=== PATIENT | male | born 1975 | race Caucasian/White ===

== ENCOUNTER 2016-08-16 21:15 | Inpatient (IN) | payer OTHER ==
[~2016-08-16] VITALS: Ht 170.2 cm; Wt 124.8 kg
[2016-08-16] MEDS ORDERED: hydrALAzine 20 MG INJ IV ONE (23:30)
[2016-08-16 23:58] LABS: ADD SCAN DIFF NO
[2016-08-17 00:01] LABS: BASOPHIL # 0.1 10^3/ul (0.0-0.1); BASOPHILS % 0.6 % (0.0-2.0); EOSINOPHILS # 0.2 10^3/ul (0.0-0.5); EOSINOPHILS % 1.5 % (0.0-7.0); HEMATOCRIT 40.8 % (42.0-52.0); HEMOGLOBIN 13.2 g/dl (14.0-18.0); LYMPHOCYTES # 2.4 10^3/ul (0.8-2.9); LYMPHOCYTES % 24.3 % (15.0-51.0); MEAN CORPUSCULAR HEMOGLOBIN 27.3 pg (29.0-33.0); MEAN CORPUSCULAR HGB CONC 32.4 g/dl (32.0-37.0); MEAN CORPUSCULAR VOLUME 84.5 fl (82.0-101.0); MEAN PLATELET VOLUME 10.6 fl (7.4-10.4); MONOCYTE # 0.8 10^3/ul (0.3-0.9); MONOCYTES % 8.2 % (0.0-11.0); NEUTROPHIL # 6.4 10^3/ul (1.6-7.5); NEUTROPHILS % 65.1 % (39.0-77.0); PLATELET COUNT 258 10^3/UL (140-415); RED BLOOD COUNT 4.83 10^6/ul (4.70-6.10); WHITE BLOOD COUNT 9.8 10^3/ul (4.8-10.8)
[2016-08-17 00:26] LABS: ALBUMIN 4.6 g/dl (3.3-4.9); ALBUMIN/GLOBULIN RATIO 1.43; BILIRUBIN,INDIRECT 0.2 mg/dl (0-1.1); BILIRUBIN,TOTAL 0.2 mg/dl (0.2-1.3); CALCIUM 9.1 mg/dl (8.4-10.2); CREATININE 1.18 mg/dl (0.61-1.24); POTASSIUM 3.5 mmol/L (3.5-5.1); TOTAL PROTEIN 7.8 g/dl (6.1-8.1)
[2016-08-17 00:36] LABS: TROPONIN-I 0.021 ng/ml (0.00-0.12)
[2016-08-17 00:44] LABS: INR 1.06; PROTIME 13.8 Sec (12.2-14.2); PT RATIO 1.1
[2016-08-17 00:45] LABS: PARTIAL THROMBOPLASTIN TIME 31.7 Sec (25.0-35.0)
--- NOTE | 2016-08-17 00:50 | RADRPT ---
PROCEDURE: XR Chest. CLINICAL INDICATION: Chest pain. TECHNIQUE: Portable AP upright view of the chest was obtained. COMPARISON: None. FINDINGS: The cardiomediastinal silhouette is enlarged. The lungs are clear. There is no evidence for pleura l effusion, pneumothorax or pulmonary vascular congestion. The osseous structures are intact with n o evidence for acute abnormality. RPTAT:HJJR IMPRESSION: Cardiac silhouette enlargement without evidence for acute intrathoracic pathology. Physician Dorota Date Time Electronically viewed and signed by Physician Dorota on 08/17/2016 00:50 JR/
[2016-08-17] MEDS ORDERED: MULTI PO (01:06)
[2016-08-17] MEDS ORDERED: IBUP200C11 PO (01:06)
[2016-08-17] MEDS ORDERED: hydrALAzine 20 MG INJ IV ONE (04:30)
--- NOTE | 2016-08-17 10:03 | QN ---
Documentation Comment Patient was signed out to me by Dr. Ashton and is awaiting a telemetry bed. Observation Note: Time: 4 hours Family Hx: Negative for diabetes Evaluation: Multiple exams showed improving symptoms and no evidence of clinical decompensation. PRETTY ROGERS MD Aug 17, 2016 10:03
[2016-08-17] MEDS ORDERED: ASPIRIN 81 MG TAB PO ONE (11:00)
[2016-08-17 14:39] VITALS: TEMP 99
[2016-08-17 19:20] VITALS: BP 181/101; PULSE 69; RESP 20; Ht 170.2 cm; Wt 124.8 kg
[2016-08-17 20:00] VITALS: BP 175/98; RESP 20
[2016-08-17 20:31] VITALS: PULSE 74
--- NOTE | 2016-08-17 23:40 | QN ---
Documentation Comment [id number] JENNIFER MACHADO MD Aug 17, 2016 23:40
[2016-08-18] VITALS (13 sets, daily range): BP systolic 153–184; BP diastolic 88–99; PULSE 63–90; RESP 17–19
--- NOTE | 2016-08-18 00:50 | HP ---
DATE OF ADMISSION: 08/17/2016 HISTORY OF PRESENT ILLNESS: Maynor is a 40-year-old male who has a history of hypertension. The fabian ent presented to this hospital with uncontrolled hypertension. The patient was seen by Dr. Ashton and the patient's blood pressure 155/77 in the ER earlier. The patient's chest x-ray done shows cardiac silhouette enlargement without evidence of acute intrat horacic pathology. The patient's laboratory data done shows hematocrit 40.8, sodium 140, potassium 3.5, BUN 33. Troponin initially 0.21 and repeat 1.[address] Yee was called to see this patien t in consultation. PAST MEDICAL HISTORY: Hypertension on no medication. ALLERGY HISTORY: NEGATIVE. FAMILY HISTORY: Hypertension. SOCIAL HISTORY: Denies. MEDICATIONS AT HOME: None except listed as ibuprofen. REVIEW OF SYSTEMS: HEENT: Unremarkable. RESPIRATORY: Unremarkable. CARDIOVASCULAR: No chest pain, palpitation. ABDOMEN: Unremarkable. EXTREMITIES: Unremarkable. PHYSICAL EXAMINATION: GENERAL: The patient is awake, alert, overweight male. VITAL SIGNS: As mentioned above, the patient at the time of admission, blood pressure 222/111, late st blood pressure is running 175/____. HEAD: Atraumatic, normocephalic. Pupils equal, reactive to light. NECK: Supple. No JVD. LUNGS: Clear. CARDIOVASCULAR: S1, S2 are normal. ABDOMEN: Soft, nontender. Bowel sounds positive. No palpable mass or hepatosplenomegaly. No guar ding, rebound tenderness. EXTREMITIES: There is no cyanosis, clubbing, or edema. CENTRAL NERVOUS SYSTEM: The patient is awake, alert, no focal deficit on the monitor shows normal s inus rhythm. IMPRESSION: 1. Uncontrolled malignant hypertension. 2. The patient has non-ST myocardial infarction. 3. The patient has mild anemia 4. Obesity. PLAN: To obtain cardiology consultation, oxygen, aspirin, 2D echo, nitro. Home medications will be reviewed and continued. Dictated By: JENNIFER MACHADO MD BS/NTS Conf#: [id number] DID#: [id number]
[2016-08-18] MEDS: NITROGLYCERIN 2% 1 GM OINT PKT TD SCH ×3 (03:55→20:18)
[2016-08-18] MEDS ORDERED: ENOXAPARIN 100 MG/ML SYG SC SCH (09:00)
[2016-08-18] MEDS: LOSARTAN 50 MG TAB PO SCH (10:22)
[2016-08-18] MEDS: METOPROLOL (XL) 50 MG TAB PO SCH (10:22)
[2016-08-18] MEDS: ASPIRIN (EC) 325 MG TAB PO SCH (10:23)
[2016-08-18] MEDS: ENOXAPARIN 60 MG/0.6 ML SYG SC SCH ×2 (10:28→20:20)
[2016-08-18] MEDS ORDERED: NITROGLYCERIN (SL) 0.4 MG TAB SL PRN (15:30)
[2016-08-18] MEDS: hydrALAzine 20 MG INJ IV PRN (15:58)
--- NOTE | 2016-08-18 16:00 | RADRPT ---
Echocardiogram Report Patient Name: STEFANY SIMMONS Gender: Male Date: 1975 Study Date: 17-Aug-2016 Day Worker: Julia [facility] Location: [facility] Ref. Physician: JENNIFER MACHADO Quality: Adequate Procedures: Transthoracic echocardiogram with complete 2D, M-Mode, and doppler examination. Indications: Hypertension. 2D/M Mode Doppler Measurement Value Normal Ranges Measurement Value Normal Ranges LVIDd 2D 4.9 3.5 - 5.6 cm AV Peak Jair 2.3 m/sec LVIDs 2D 3.2 2.1 - 4.1 cm AV Peak PG 21.1 mmHg LVPWd 2D 1.5 0.6 - 1.1 cm LVOT Peak Jair 1.6 m/sec IVSd 2D 1.5 0.6 - 1.1 cm LVOT Peak PG 10.4 mmHg AoR Diam 2D 2.2 2.0 - 3.7 cm MV E Peak Jair 0.8 m/sec EDV 2D 112.0 cm3 MV A Peak Jair 0.9 m/sec ESV 2D 31.6 cm3 MV E/A 0.8 LA Dimen 2D 4.0 2.3 - 4.0 cm MV Decel Time 273 msec MV Decel Ford 3 MV E/A 0.8 Findings Left Ventricle: Normal left ventricular systolic function. Normal left ventricular cavity size. Moderate concentric left ventricular hypertrophy. Ejection fraction is visually estimated at 55 %. Tissue Doppler/Mitral Doppler indices are consistent with impaired relaxation (Stage I diastolic dysfunction). Right Ventricle: Normal right ventricular size. Normal right ventricular systolic function. Left Atrium: The left atrium is normal in size. Right Atrium: The right atrium is normal in size. Mitral Valve: Mild mitral leaflet calcification. Trace mitral regurgitation. Aortic Valve: Normal appearance of the aortic valve. No significant aortic stenosis or insufficiency. Tricuspid Valve: Normal appearance and function of the tricuspid valve with trace physiologic regurgitation. Unable to obtain RVSP due to minimal presence of tricuspid regurgitation. Pericardium: Normal pericardium with no significant pericardial effusion. Aorta: Normal aortic root. IVC: Normal size and normal respiratory collapse consistent with normal right atrial pressure. Conclusions 1.Normal left ventricular systolic function. Normal left ventricular cavity size. Moderate concentric left ventricular hypertrophy. Ejection fraction is visually estimated at 55 %. Tissue Doppler/Mitral Doppler indices are consistent with impaired relaxation (Stage I diastolic dysfunction). 2.Trace mitral regurgitation. 3.Normal appearance and function of the tricuspid valve with trace physiologic regurgitation. Unable to obtain RVSP due to minimal presence of tricuspid regurgitation. Electronically Signed By: Dami Yee 18-Aug-2016 15:59:40 -0700 Patient Name: STEFANY SIMMONS Study Date: 17-Aug-2016 [id number]
--- NOTE | 2016-08-18 16:22 | CONS ---
DATE OF ADMISSION: 08/17/2016 DATE OF CONSULTATION: 08/18/2016 REASON FOR CONSULTATION: Hypertensive urgency/emergency, positive troponin. REQUESTING PHYSICIAN: Dr. Machado HISTORY OF PRESENT ILLNESS: Mr. Veras is a 40-year-old male with a recent diagnosis of hypertensi on who presented with uncontrolled systolic blood pressures as high as 240 per patient at home. The patient, upon arrival, described some intermittent vague chest pain which he thought were due to wo rking out. Upon arrival in the emergency department, temperature 97.2, blood pressure markedly elev ated at 222/111, pulse 60, respiration 18, saturating 97%. The patient's labs revealed sodium 140, potassium 3.5, creatinine 1.1, BUN 33. Troponin initially negative. BNP of 1340. INR 1.0. White blood count 9.8, hemoglobin 13.2, platelet count 258. The patient underwent a chest x-ray revealing cardiac silhouette enlarged without evidence for acute intrathoracic pathology. The patient's elec trocardiogram revealed normal sinus rhythm, rate of 60, normal axis, normal intervals with lateral T -wave inversion. The patient subsequently was admitted to the floor, and since admit to floor has h ad troponins trending going from negative to positive at a peak of 0.361. The patient denies curren t chest pain. PAST MEDICAL HISTORY: As above in HPI. MEDICATIONS CURRENTLY IN HOSPITAL: 1. Lipitor 80 mg at bedtime. 2. Aspirin 325 mg daily. 3. Toprol 50 mg daily. 4. Cozaar 100 mg daily. 5. Hydralazine p.r.n. 6. Nitro paste 1 inch q. 12. 7. Clonidine p.r.n. ALLERGIES: NO KNOWN DRUG ALLERGIES. SOCIAL HISTORY: No tobacco, social ETOH, no illicit drug use. FAMILY HISTORY: Negative for sudden cardiac or early CAD. REVIEW OF SYSTEMS: As above in HPI. CONSTITUTIONAL: No fevers, chills. PULMONARY: No current shortness of breath. CARDIOVASCULAR: No current chest pain. GASTROINTESTINAL: No vomiting. GENITOURINARY: No hematuria. MUSCULOSKELETAL: Degenerative joint disease. PSYCHIATRIC: The patient denies depression. NEUROLOGIC: No documented history of CVA. PHYSICAL EXAMINATION VITAL SIGNS: Temperature 98.8, blood pressure 160/90, pulse 61, respiratory rate 19, saturating 96% . GENERAL: The patient is alert, awake, in no acute distress. NECK: JVP approximately 8 to 9 cm of water. CHEST: Fair air movement throughout. HEART: Regular rate and rhythm. S1, S2, I/ systolic murmur, nondisplaced PMI. ABDOMEN: Positive bowel sounds, soft, obese. EXTREMITIES: No pitting edema, 1+ pulses bilaterally, posterior tibial. LABORATORY DATA: As above in HPI. No further labs for my review at this time. IMAGING STUDIES: As above in HPI. No further imaging studies for my review at this time. ECG: As above in HPI. No further electrocardiograms for my review at this time. IMPRESSION: 1. Positive troponin concerning for non-ST elevation myocardial infarction. 2. Chest pain on admission; none currently. 3. Hypertensive emergency, slowly improving on oral antihypertensives. 4. Anemia. 5. Dyslipidemia. RECOMMENDATIONS: 1. At this time, would maintain the patient on telemetry monitoring to follow rhythm and rate contr ol closely. 2. We will continue to trend the patient's cardiac enzymes, assess for any significant ongoing card iac damage. 3. Continue the patient's current beta alphonse, Cozaar, and we will additionally initiate the patie nt on calcium channel alphonse to improve overall systolic blood pressure control. 4. Continue the patient's current statin and adjust it according to fasting lipid panel which is to be checked. 5. Continue the patient's Lovenox at this time while you continue to trend the patient's cardiac en zymes and the patient's nitro paste in the setting of hypertensive urgency/emergency. 6. Depending on ongoing evaluation of patient's troponins, 2D echo analysis which will be interpret ed today and serial EKGs, the patient will likely benefit from either cardiac stress test to further assess significance troponins versus direct left heart catheterization with possible PTCA and stent placement. Thank you for allowing me to take part in the care of this patient. I will continue to follow along very closely with you with further recommendations to be made as the patient progresses through his inpatient hospital clinical course. Dictated By: TAYLOR MCMULLEN/KEMI Conf#: [id number] DID#: [id number] CC: JENNIFER MACHADO MD;*EndCC*
--- NOTE | 2016-08-18 18:30 | PN ---
Date/Time of Note Date/Time of Note DATE: 08/18/16 TIME: 18:29 Assessment/Plan VTE Prophylaxis VTE Prophylaxis Intervention: other Lines/Catheters IV [facility]from [facility] [place] [facility] Urinary Cath still in place: No Assessment/Plan Chief Complaint/Hosp Course IMPRESSION: 1. Uncontrolled malignant hypertension. 2. The patient has non-ST myocardial infarction. 3. The patient has mild anemia 4. Obesity. plan per dr cedillo Problems: Subjective 24 Hr Interval Summary Respiratory: no complaints Cardiovascular: no complaints Exam/Review of Systems Vital Signs Vitals Vital Signs Date Time Temp Pulse Resp B/P Pulse Ox O2 Delivery O2 Flow Rate FiO2 08/18/16 16:25 72 08/18/16 15:54 98.6 17 184/97 97 08/17/16 19:20 Room Air Intake and Output 08/17/16 08/17/16 08/18/16 15:00 23:00 07:00 Intake Total 400 ml Balance 400 ml Exam Neck: supple Respiratory: clear to auscultation Cardiovascular: regular rate and rhythm Gastrointestinal: bowel sounds, soft Extremities: normal pulses Results Result Diagram: 08/16/16 2350 08/16/16 2350 Results 24 hrs Laboratory Tests Test 08/17/16 21:40 08/18/16 00:30 Troponin I 0.349 *H 0.361 *H Medications Medications Current Medications Clonidine (Catapres) 0.1 mg Q6H PRN PO prn sbp > 160 or dbp >100 Last administered on 08/18/16 03:56; Admin Dose 0.1 MG; Start 08/17/16 at 11:00 Atorvastatin Calcium (Lipitor) 80 mg HS PO ; Start 08/18/16 at 21:00 Enoxaparin Sodium (Lovenox) 120 mg Q12 SC Last administered on 08/18/16 10:28; Admin Dose 120 MG; Start 08/18/16 at 09:00; Stop 08/18/16 at 23:00 Aspirin (Ecotrin) 325 mg DAILY PO Last administered on 08/18/16 10:23; Admin Dose 325 MG; Start 08/18/16 at 09:00 Metoprolol Succinate (Toprol Xl) 50 mg DAILY PO Last administered on 08/18/16 10:22; Admin Dose 50 MG; Start 08/18/16 at 09:00 Losartan Potassium (Cozaar) 100 mg DAILY PO Last administered on 08/18/16 10:22 ; Admin Dose 100 MG; Start 08/18/16 at 09:00 Hydralazine HCl (Apresoline) 10 mg Q6H PRN IV SBP>170 Last administered on 15:58; Admin Dose 10 MG; Start 08/18/16 at 00:30 Nitroglycerin (Nitroglycerin 2% Oint) 1 inch Q12 TD Last administered on 10:24; Admin Dose 1 INCH; Start 08/18/16 at 04:00 Nifedipine (Procardia Xl) 30 mg DAILY PO ; Start 08/19/16 at 21:00 Nitroglycerin (Nitroglycerin (Sl Tab) 0.4 Mg) 1 tab Q5M PRN SL ANGINA; Start at 15:30 JENNIFER MACHADO MD Aug 18, 2016 18:30
[2016-08-18] MEDS: ATORVASTATIN 80 MG TAB PO SCH (20:16)
[2016-08-19] VITALS (18 sets, daily range): BP systolic 150–187; BP diastolic 77–103; PULSE 64–97; RESP 18–20
[2016-08-19] MEDS: hydrALAzine 20 MG INJ IV PRN ×3 (04:33→21:38)
[2016-08-19 07:40] LABS: ADD SCAN DIFF NO
[2016-08-19 07:43] LABS: BASOPHIL # 0.1 10^3/ul (0.0-0.1); BASOPHILS % 0.7 % (0.0-2.0); EOSINOPHILS # 0.1 10^3/ul (0.0-0.5); EOSINOPHILS % 1.2 % (0.0-7.0); HEMOGLOBIN 12.8 g/dl (14.0-18.0); LYMPHOCYTES # 1.6 10^3/ul (0.8-2.9); LYMPHOCYTES % 17.5 % (15.0-51.0); MEAN CORPUSCULAR HEMOGLOBIN 27.8 pg (29.0-33.0); MEAN CORPUSCULAR HGB CONC 32.8 g/dl (32.0-37.0); MEAN CORPUSCULAR VOLUME 84.8 fl (82.0-101.0); MEAN PLATELET VOLUME 10.6 fl (7.4-10.4); MONOCYTE # 0.8 10^3/ul (0.3-0.9); MONOCYTES % 8.6 % (0.0-11.0); NEUTROPHIL # 6.5 10^3/ul (1.6-7.5); NEUTROPHILS % 71.7 % (39.0-77.0); PLATELET COUNT 217 10^3/UL (140-415); RED CELL DISTRIBUTION WIDTH 14.4 % (11.5-14.5); WHITE BLOOD COUNT 9.1 10^3/ul (4.8-10.8)
[2016-08-19 08:07] LABS: ALBUMIN 4.3 g/dl (3.3-4.9); ALBUMIN/GLOBULIN RATIO 1.53; BILIRUBIN,INDIRECT 0.5 mg/dl (0-1.1); BILIRUBIN,TOTAL 0.5 mg/dl (0.2-1.3); CALCIUM 8.6 mg/dl (8.4-10.2); CHOL/HDL RATIO 4.4 RATIO; CREATININE 1.06 mg/dl (0.61-1.24); POTASSIUM 3.8 mmol/L (3.5-5.1); TOTAL PROTEIN 7.1 g/dl (6.1-8.1)
[2016-08-19] MEDS: ASPIRIN (EC) 325 MG TAB PO SCH (09:48)
[2016-08-19] MEDS: METOPROLOL (XL) 50 MG TAB PO SCH (09:49)
[2016-08-19] MEDS: LOSARTAN 50 MG TAB PO SCH (09:49)
[2016-08-19] MEDS: NITROGLYCERIN 2% 1 GM OINT PKT TD SCH ×2 (09:49→21:37)
--- NOTE | 2016-08-19 09:52 | RADRPT ---
Vent Rate: 71 bpm RR Interval: 0 msec VT Interval: 180 msec QRS Duration: 116 msec QT Interval: 440 msec QTC Interval: 478 msec P-R-T [place]: 50 - -12 - 148 degrees Normal sinus rhythm ST amp; T wave abnormality, consider lateral ischemia Prolonged QT Abnormal ECG No previous tracing available for comparison Electronically Signed By: Demetrio Whittaker [id number]
--- NOTE | 2016-08-19 17:57 | CONS ---
Date/Time of Note Date/Time of Note DATE: 08/19/16 TIME: 17:53 Assessment/Plan Assessment/Plan Chief Complaint/Hosp Course IMPRESSION: 1. Positive troponin concerning for non-ST elevation myocardial infarction. 2. Chest pain on admission; none currently. 3. Hypertensive emergency-still uncontrolled 4. Anemia. 5. Dyslipidemia. Recc: -Tele -serial ecg's -trend cardiac enzymes -Increase procardia and continue toprol/losartan -Continue statin -[facility] with possible PTCA/stent Problems: Consultation Date/Type/Reason Admit Date/Time Aug 17, 2016 at 01:56 Initial Consult Date 08/18/2016 Type of Consultation: cardiology Reason for Consultation positive troponin Referring Provider: JENNIFER MACHADO Exam/Review of Systems Vital Signs Vitals Vital Signs Date Time Temp Pulse Resp B/P Pulse Ox O2 Delivery O2 Flow Rate FiO2 08/19/16 16:24 86 08/19/16 16:09 97.6 18 187/95 98 08/17/16 19:20 Room Air Intake and Output 08/18/16 08/18/16 08/19/16 15:00 23:00 07:00 Intake Total 800 ml 500 ml Balance 800 ml 500 ml Exam Review of Systems: CONSTITUTIONAL: No fevers, chills. PULMONARY: No sob CARDIOVASCULAR: No chest pain/palpitations GASTROINTESTINAL: No nausea/vomiting. GENITOURINARY: No hematuria/dysuria. MUSCULOSKELETAL: No myagias/arthalgias. PSYCHIATRIC: The patient denies depression. NEUROLOGIC: No weakness Constitutional: alert Psych: no complaints Head: normocephalic ENMT: mucosa pink and moist Neck: jvd (9 cm water), supple Respiratory: diminished breath sounds (at bases/B) Cardiovascular: regular rate and rhythm Gastrointestinal: non-tender, soft Musculoskeletal: muscle tone (normal) Extremities: edema (none) Neurological: numbness (of LE) Results Result Diagram: 08/19/16 0714 08/19/16 0715 Results 24 hrs Laboratory Tests Test 08/19/16 00:52 08/19/16 07:14 08/19/16 07:15 08/19/16 11:47 Troponin I 0.222 *H White Blood Count 9.1 Red Blood Count 4.60 L Hemoglobin 12.8 L Hematocrit 39.0 L Mean Corpuscular Volume 84.8 Mean Corpuscular Hemoglobin 27.8 L Mean Corpuscular Hemoglobin Concent 32.8 Red Cell Distribution Width 14.4 Platelet Count 217 Mean Platelet Volume 10.6 H Neutrophils % 71.7 Lymphocytes % 17.5 Monocytes % 8.6 Eosinophils % 1.2 Basophils % 0.7 Nucleated Red Blood Cells % 0.0 Neutrophils # 6.5 Lymphocytes # 1.6 Monocytes # 0.8 Eosinophils # 0.1 Basophils # 0.1 Nucleated Red Blood Cells # 0.0 Sodium Level 140 Potassium Level 3.8 Chloride Level 105 Carbon Dioxide Level 29 Anion Gap 10 Blood Urea Nitrogen 26 H Creatinine 1.06 Glucose Level 89 Calcium Level 8.6 Total Bilirubin 0.5 Direct Bilirubin 0.00 Indirect Bilirubin 0.5 Aspartate Amino Transf (AST/SGOT) 22 Alanine Aminotransferase (ALT/SGPT) 39 Alkaline Phosphatase 95 Total Protein 7.1 Albumin 4.3 Globulin 2.80 Albumin/Globulin Ratio 1.53 Triglycerides Level 94 Cholesterol Level 128 LDL Cholesterol, Calculated 80 HDL Cholesterol 29 Cholesterol/HDL Ratio 4.4 Bedside Glucose 161 Test 08/19/16 17:13 Bedside Glucose 87 Medications Medications Current Medications Clonidine (Catapres) 0.1 mg Q6H PRN PO prn sbp > 160 or dbp >100 Last administered on 08/18/16 20:26; Admin Dose 0.1 MG; Start 08/17/16 at 11:00 Atorvastatin Calcium (Lipitor) 80 mg HS PO Last administered on 08/18/16 20:16 ; Admin Dose 80 MG; Start 08/18/16 at 21:00 Aspirin (Ecotrin) 325 mg DAILY PO Last administered on 08/19/16 09:48; Admin Dose 325 MG; Start 08/18/16 at 09:00 Metoprolol Succinate (Toprol Xl) 50 mg DAILY PO Last administered on 08/19/16 09:49; Admin Dose 50 MG; Start 08/18/16 at 09:00 Losartan Potassium (Cozaar) 100 mg DAILY PO Last administered on 08/19/16 09:49 ; Admin Dose 100 MG; Start 08/18/16 at 09:00 Hydralazine HCl (Apresoline) 10 mg Q6H PRN IV SBP>170 Last administered on 15:27; Admin Dose 10 MG; Start 08/18/16 at 00:30 Nitroglycerin (Nitroglycerin 2% Oint) 1 inch Q12 TD Last administered on t 09:49; Admin Dose 1 INCH; Start 08/18/16 at 04:00 Nifedipine (Procardia Xl) 30 mg DAILY PO ; Start 08/19/16 at 21:00 Nitroglycerin (Nitroglycerin (Sl Tab) 0.4 Mg) 1 tab Q5M PRN SL ANGINA; Start at 15:30 TAYLOR MICHAELS Aug 19, 2016 17:57
[2016-08-19] MEDS ORDERED: NIFEdipine (XL) 30 MG TAB PO ONE (18:00)
--- NOTE | 2016-08-19 18:05 | PN ---
Date/Time of Note Date/Time of Note DATE: 08/19/16 TIME: 18:04 Assessment/Plan VTE Prophylaxis VTE Prophylaxis Intervention: other Lines/Catheters IV Catheter Type (from Nrs): Peripheral IV Urinary Cath still in place: No Assessment/Plan Chief Complaint/Hosp Course IMPRESSION: 1. Uncontrolled malignant hypertension.better 2. The patient has non-ST myocardial infarction. 3. The patient has mild anemia 4. Obesity. plan per dr cedillo bp meds Problems: Subjective 24 Hr Interval Summary Respiratory: no complaints Cardiovascular: No chest pain Exam/Review of Systems Vital Signs Vitals Vital Signs Date Time Temp Pulse Resp B/P Pulse Ox O2 Delivery O2 Flow Rate FiO2 08/19/16 16:24 86 08/19/16 16:09 97.6 18 187/95 98 08/17/16 19:20 Room Air Intake and Output 08/18/16 08/18/16 08/19/16 15:00 23:00 07:00 Intake Total 800 ml 500 ml Balance 800 ml 500 ml Exam Neck: supple Respiratory: clear to auscultation Cardiovascular: regular rate and rhythm Gastrointestinal: soft Musculoskeletal: nl extremities to inspection Extremities: normal pulses Results Result Diagram: 08/19/16 0714 08/19/16 0715 Results 24 hrs Laboratory Tests Test 08/19/16 00:52 08/19/16 07:14 08/19/16 07:15 08/19/16 11:47 Troponin I 0.222 *H White Blood Count 9.1 Red Blood Count 4.60 L Hemoglobin 12.8 L Hematocrit 39.0 L Mean Corpuscular Volume 84.8 Mean Corpuscular Hemoglobin 27.8 L Mean Corpuscular Hemoglobin Concent 32.8 Red Cell Distribution Width 14.4 Platelet Count 217 Mean Platelet Volume 10.6 H Neutrophils % 71.7 Lymphocytes % 17.5 Monocytes % 8.6 Eosinophils % 1.2 Basophils % 0.7 Nucleated Red Blood Cells % 0.0 Neutrophils # 6.5 Lymphocytes # 1.6 Monocytes # 0.8 Eosinophils # 0.1 Basophils # 0.1 Nucleated Red Blood Cells # 0.0 Sodium Level 140 Potassium Level 3.8 Chloride Level 105 Carbon Dioxide Level 29 Anion Gap 10 Blood Urea Nitrogen 26 H Creatinine 1.06 Glucose Level 89 Calcium Level 8.6 Total Bilirubin 0.5 Direct Bilirubin 0.00 Indirect Bilirubin 0.5 Aspartate Amino Transf (AST/SGOT) 22 Alanine Aminotransferase (ALT/SGPT) 39 Alkaline Phosphatase 95 Total Protein 7.1 Albumin 4.3 Globulin 2.80 Albumin/Globulin Ratio 1.53 Triglycerides Level 94 Cholesterol Level 128 LDL Cholesterol, Calculated 80 HDL Cholesterol 29 Cholesterol/HDL Ratio 4.4 Bedside Glucose 161 Test 08/19/16 17:13 Bedside Glucose 87 Medications Medications Current Medications Clonidine (Catapres) 0.1 mg Q6H PRN PO prn sbp > 160 or dbp >100 Last administered on 08/18/16 20:26; Admin Dose 0.1 MG; Start 08/17/16 at 11:00 Atorvastatin Calcium (Lipitor) 80 mg HS PO Last administered on 08/18/16 20:16 ; Admin Dose 80 MG; Start 08/18/16 at 21:00 Aspirin (Ecotrin) 325 mg DAILY PO Last administered on 08/19/16 09:48; Admin Dose 325 MG; Start 08/18/16 at 09:00 Metoprolol Succinate (Toprol Xl) 50 mg DAILY PO Last administered on 08/19/16 09:49; Admin Dose 50 MG; Start 08/18/16 at 09:00 Losartan Potassium (Cozaar) 100 mg DAILY PO Last administered on 08/19/16 09:49 ; Admin Dose 100 MG; Start 08/18/16 at 09:00 Hydralazine HCl (Apresoline) 10 mg Q6H PRN IV SBP>170 Last administered on 15:27; Admin Dose 10 MG; Start 08/18/16 at 00:30 Nitroglycerin (Nitroglycerin 2% Oint) 1 inch Q12 TD Last administered on 09:49; Admin Dose 1 INCH; Start 08/18/16 at 04:00 Nifedipine (Procardia Xl) 30 mg DAILY PO ; Start 08/19/16 at 21:00 Nitroglycerin (Nitroglycerin (Sl Tab) 0.4 Mg) 1 tab Q5M PRN SL ANGINA; Start at 15:30 JENNIFER MACHADO MD Aug 19, 2016 18:05
[2016-08-19] MEDS ORDERED: NIFEdipine (XL) 30 MG TAB PO SCH (21:00)
[2016-08-19] MEDS: ATORVASTATIN 80 MG TAB PO SCH (21:37)
[2016-08-19] MEDS: NIFEdipine (XL) 30 MG TAB PO SCH (21:38)
[2016-08-20] VITALS (21 sets, daily range): BP systolic 138–182; BP diastolic 74–95; PULSE 68–96; RESP 10–27
[2016-08-20] MEDS ORDERED: DIPHENHYDRAMINE 50 MG CAP PO ONE (07:00)
[2016-08-20] MEDS ORDERED: DIAZEPAM 5 MG TAB PO ONE (07:00)
[2016-08-20 08:08] LABS: ADD SCAN DIFF NO
[2016-08-20 08:14] LABS: BASOPHIL # 0.1 10^3/ul (0.0-0.1); BASOPHILS % 0.8 % (0.0-2.0); EOSINOPHILS # 0.3 10^3/ul (0.0-0.5); EOSINOPHILS % 2.4 % (0.0-7.0); HEMATOCRIT 40.3 % (42.0-52.0); HEMOGLOBIN 12.9 g/dl (14.0-18.0); LYMPHOCYTES # 1.8 10^3/ul (0.8-2.9); MEAN CORPUSCULAR HEMOGLOBIN 27.1 pg (29.0-33.0); MEAN CORPUSCULAR VOLUME 84.7 fl (82.0-101.0); MONOCYTE # 0.9 10^3/ul (0.3-0.9); MONOCYTES % 8.7 % (0.0-11.0); NEUTROPHIL # 7.5 10^3/ul (1.6-7.5); NEUTROPHILS % 70.8 % (39.0-77.0); PLATELET COUNT 252 10^3/UL (140-415); RED BLOOD COUNT 4.76 10^6/ul (4.70-6.10); RED CELL DISTRIBUTION WIDTH 14.5 % (11.5-14.5); WHITE BLOOD COUNT 10.6 10^3/ul (4.8-10.8)
[2016-08-20] MEDS: LOSARTAN 50 MG TAB PO SCH (08:20)
[2016-08-20] MEDS: METOPROLOL (XL) 50 MG TAB PO SCH (08:21)
[2016-08-20] MEDS: ASPIRIN (EC) 325 MG TAB PO SCH (08:21)
[2016-08-20] MEDS: NIFEdipine (XL) 30 MG TAB PO SCH ×2 (08:21→21:10)
[2016-08-20] MEDS: NITROGLYCERIN 2% 1 GM OINT PKT TD SCH ×2 (08:22→21:10)
[2016-08-20 08:35] LABS: INR 1.08; PT RATIO 1.1
[2016-08-20] MEDS ORDERED: VERAPAMIL 5 MG INJ ONE (08:38)
[2016-08-20] MEDS ORDERED: HEPARIN 1000 UNITS/ML 10 ML INJ ONE (08:38)
[2016-08-20] MEDS ORDERED: NITROGLYCERIN (IC) 100 MCG/ML INJ ONE (08:38)
[2016-08-20] MEDS ORDERED: MIDAZOLAM 1 MG/ML 2 ML INJ ONE (08:38)
[2016-08-20] MEDS ORDERED: FENTAnyl 50 MCG/ML VIAL ONE (08:38)
[2016-08-20] MEDS ORDERED: LIDOCAINE 1% (MDV) 20 ML INJ ONE (08:38)
[2016-08-20] MEDS ORDERED: IODIXANOL LOCM 100 ML BTL ONE ×2 (08:38→09:47)
[2016-08-20 08:42] LABS: CALCIUM 8.8 mg/dl (8.4-10.2); CREATININE 0.96 mg/dl (0.61-1.24)
--- NOTE | 2016-08-20 08:57 | RADRPT ---
Vent Rate: 83 bpm RR Interval: 0 msec VT Interval: 174 msec QRS Duration: 112 msec QT Interval: 404 msec QTC Interval: 474 msec P-R-T [place]: 47 - -32 - 111 degrees Normal sinus rhythm Left axis deviation left anterior hemiblock Poor R-Wave progression Cannot rule out Inferior infarct , age undetermined ST amp; T wave abnormality, consider lateral ischemia Abnormal ECG No previous tracing available for comparison Electronically Signed By: Demetrio Whittaker [id number]
[2016-08-20] MEDS ORDERED: hydrALAzine 20 MG INJ ONE (09:55)
--- NOTE | 2016-08-20 10:29 | CONS ---
Date/Time of Note Date/Time of Note DATE: 08/20/16 TIME: 10:26 Assessment/Plan Assessment/Plan Chief Complaint/Hosp Course IMPRESSION: 1. Positive troponin concerning for non-ST elevation myocardial infarction.- Now s/p C 08/20 with mild to moderate non-obstructive cad 2. Chest pain on admission none currently. 3. Hypertensive emergency-improving 4. Anemia. 5. Dyslipidemia. Recc: -Tele -serial ecg's -trend cardiac enzymes -Continue toprol/losartan/procardia XL BID -Continue statin Problems: Consultation Date/Type/Reason Admit Date/Time Aug 17, 2016 at 01:56 Initial Consult Date 08/18/2016 Type of Consultation: cardiology Reason for Consultation Positive troponin Referring Provider: JENNIFER MACHADO MD Exam/Review of Systems Vital Signs Vitals Vital Signs Date Time Temp Pulse Resp B/P Pulse Ox O2 Delivery O2 Flow Rate FiO2 08/20/16 08:29 80 08/20/16 07:41 98.1 20 141/80 94 08/17/16 19:20 Room Air Intake and Output 08/19/16 08/19/16 08/20/16 15:00 23:00 07:00 Intake Total 920 ml 900 ml Balance 920 ml 900 ml Exam Review of Systems: CONSTITUTIONAL: No fevers, chills. PULMONARY: No sob CARDIOVASCULAR: No chest pain/palpitations GASTROINTESTINAL: No nausea/vomiting. GENITOURINARY: No hematuria/dysuria. MUSCULOSKELETAL: No myagias/arthalgias. PSYCHIATRIC: The patient denies depression. NEUROLOGIC: No weakness Constitutional: alert Psych: no complaints Head: normocephalic ENMT: mucosa pink and moist Neck: jvd (9 cm water), supple Respiratory: clear to auscultation Cardiovascular: regular rate and rhythm Gastrointestinal: non-tender, soft Musculoskeletal: muscle tone (normal) Extremities: edema (None) Neurological: other Results Result Diagram: 08/20/16 0621 08/20/16 0612 Results 24 hrs Laboratory Tests Test 08/19/16 11:47 08/19/16 17:13 08/20/16 06:12 08/20/16 06:21 Bedside Glucose 161 87 Prothrombin Time 14.0 Prothrombin Time Ratio 1.1 INR International Normalized Ratio 1.08 Sodium Level 141 Potassium Level 4.0 Chloride Level 107 Carbon Dioxide Level 24 Anion Gap 14 Blood Urea Nitrogen 22 H Creatinine 0.96 Glucose Level 93 Calcium Level 8.8 White Blood Count 10.6 Red Blood Count 4.76 Hemoglobin 12.9 L Hematocrit 40.3 L Mean Corpuscular Volume 84.7 Mean Corpuscular Hemoglobin 27.1 L Mean Corpuscular Hemoglobin Concent 32.0 Red Cell Distribution Width 14.5 Platelet Count 252 Mean Platelet Volume 11.0 H Neutrophils % 70.8 Lymphocytes % 17.0 Monocytes % 8.7 Eosinophils % 2.4 Basophils % 0.8 Nucleated Red Blood Cells % 0.0 Neutrophils # 7.5 Lymphocytes # 1.8 Monocytes # 0.9 Eosinophils # 0.3 Basophils # 0.1 Nucleated Red Blood Cells # 0.0 Test 08/20/16 07:44 Bedside Glucose 99 Medications Medications Current Medications Clonidine (Catapres) 0.1 mg Q6H PRN PO prn sbp > 160 or dbp >100 Last administered on 08/18/16 20:26; Admin Dose 0.1 MG; Start 08/17/16 at 11:00 Atorvastatin Calcium (Lipitor) 80 mg HS PO Last administered on 08/19/16 21:37 ; Admin Dose 80 MG; Start 08/18/16 at 21:00 Aspirin (Ecotrin) 325 mg DAILY PO Last administered on 08/20/16 08:21; Admin Dose 325 MG; Start 08/18/16 at 09:00 Metoprolol Succinate (Toprol Xl) 50 mg DAILY PO Last administered on 08/20/16 08:21; Admin Dose 50 MG; Start 08/18/16 at 09:00 Losartan Potassium (Cozaar) 100 mg DAILY PO Last administered on 08/20/16 08:20 ; Admin Dose 100 MG; Start 08/18/16 at 09:00 Nitroglycerin (Nitroglycerin 2% Oint) 1 inch Q12 TD Last administered on 21:37; Admin Dose 1 INCH; Start 08/18/16 at 04:00 Nitroglycerin (Nitroglycerin (Sl Tab) 0.4 Mg) 1 tab Q5M PRN SL ANGINA; Start at 15:30 Hydralazine HCl (Apresoline) 10 mg Q4 PRN IV SBP>170 Last administered on 21:38; Admin Dose 10 MG; Start 08/19/16 at 21:00 Nifedipine (Procardia Xl) 30 mg BID PO Last administered on 08/20/16t 08:21; Admin Dose 30 MG; Start 08/19/16 at 21:00 TAYLOR MICHAELS Aug 20, 2016 10:29
[2016-08-20] MEDS ORDERED: SOD CHLORIDE 0.9% 1,000 ML IV SCH (10:30)
[2016-08-20] MEDS ORDERED: ACETAMINOPHEN 325 MG TAB PO PRN (10:30)
[2016-08-20] MEDS ORDERED: ONDANSETRON 4 MG INJ IV PRN (10:30)
[2016-08-20] MEDS ORDERED: AL HYDROX/MG HYDROX/SIMETH 30 ML CUP PO PRN (10:30)
[2016-08-20] MEDS ORDERED: morphine 2 MG INJ IV PRN (10:30)
--- NOTE | 2016-08-20 11:04 | CARRPT ---
DATE OF PROCEDURE: 08/20/2016 TYPE OF PROCEDURE: 1. Left heart catheterization. 2. Coronary angiography. 3. Measurement of left ventricular end-diastolic pressure. 4. 30 minutes moderate concious sedation ATTENDING PHYSICIAN: Taylor Yee MD REFERRING PHYSICIAN: Marin Machado MD. INDICATION: Positive troponin concerning for non-ST elevation myocardial infarction. TYPE OF ANESTHESIA: Conscious and local. BRIEF HISTORY AND HOSPITAL COURSE: Mr. Veras is a 40-year-old male with history of hypertension, who presented with uncontrolled systolic blood pressure greater than 200, in this setting ruled in for a non-ST elevation myocardial infarction. Given these findings, the patient was referred for and presents today in order to undergo left heart catheterization to assess for the possibility of significant obstructive coronary artery disease lending to positive troponin. DESCRIPTION OF PROCEDURE: After informed consent was obtained, the patient was brought the [facility] cardiac catheterization lab where his right radial area was prepped and draped in the usual sterile fashion. Lidocaine 2% was infiltrated in the right radial area in order to achieve adequate local anesthesia. With modified Seldinger technique, the radial artery was cannulated and a 6-Guamanian arterial sheath was placed. A 6-Guamanian JL3.5 catheter was used to cannulate the left main coronary ostium. With contrast injection, multiple views of the left coronary arterial system were obtained. JL3.5 was removed over a guidewire and a JR4 was used to cannulate the right coronary arterial ostium. With contrast injection, multiple views of the right coronary arterial system obtained. JR4 was removed over a guidewire and a 6-Gu[place]ian pigtail was passed down the ascending aorta into the left ventricle where left ventricular end-diastolic pressure was measured. Pulled back across the aortic valve to assess for significant gradient, which there was not and removed. Subsequently, at this time this completed the procedure. There were no noted complications. The patient's sheath was removed. TR band was applied. FINDINGS: Coronary angiography: Left main 6 mm, no significant stenoses. LAD 4 mm, no proximal stenoses. In the mid portion, there is a stenosis up to approximately 20% to 30%. The remainder of the LAD is free of significant focal stenoses, goes around the apex. Proximal branching diagonal is 3.5 mm vessel with a proximal 30% to 40% stenosis. The circumflex proximally is a 4.5 mm vessel and is free of any significant focal stenoses in its proximal portion. Circumflex continuation AV groove at the bifurcation has a 20% stenosis. There is a very sizable mid branching obtuse marginal 4 mm with no significant focal stenoses, and then from there, there are several daughter branches off of this vessel, 2 more superior branches approximately 2.5 mm with no significant focal stenoses. The circumflex is a codominant vessel and therefore gives off a left-sided PDA 2.5 mm with no significant focal stenoses. The right coronary artery proximally is a 4 mm vessel and in its mid distal portion has a 30% stenosis, codominant vessel, gives off a very sizable PDA 3 mm with a focal 30% to 40% stenosis and a posterolateral branch 3 mm with no significant focal stenoses. No left ventriculogram undertaken due to elevated LVEDP of 31. No significant aortic stenosis by gradient. TOTAL FLUOROSCOPY TIME: 7.8 minutes. TOTAL CONTRAST: 75 mL. IMPRESSION: 1. Mild to moderate nonobstructive coronary artery disease. 2. Elevated left heart filling pressures. 3. No significant aortic stenosis by gradient. RECOMMENDATIONS: In light of procedure and findings would: 1. Maximize medical management. 2. Aggressive risk factor reduction. 3. The patient will be readmitted to telemetry floor for post-catheterization observation and continued management of presenting symptoms. Dictated By: TAYLOR MCMULLEN/KEMI Conf#: [id number] DID#: [id number] CC: MARIN MACHADO MD;*EndCC* MTDD
[2016-08-20] MEDS: hydrALAzine 20 MG INJ IV PRN (11:57)
--- NOTE | 2016-08-20 15:24 | PN ---
Date/Time of Note Date/Time of Note DATE: 08/20/16 TIME: 15:23 Assessment/Plan VTE Prophylaxis VTE Prophylaxis Intervention: ambulation Lines/Catheters [facility] Urinary Cath still in place: No Assessment/Plan Chief Complaint/Hosp Course 1. Uncontrolled malignant hypertension.better 2. The patient has non-ST myocardial infarction. 3. The patient has mild anemia 4. Obesity. Problems: Assessment/Plan 1. Control Hypertension Subjective 24 Hr Interval Summary Constitutional: improved, no complaints Exam/Review of Systems Vital Signs Vitals Vital Signs Date Time Temp Pulse Resp B/P Pulse Ox O2 Delivery O2 Flow Rate FiO2 08/20/16 12:45 98.7 86 18 148/74 96 08/20/16 12:17 Room Air Intake and Output 08/19/16 08/19/16 08/20/16 15:00 23:00 07:00 Intake Total 920 ml 900 ml Balance 920 ml 900 ml Exam Constitutional: alert, oriented Neck: supple Respiratory: clear to auscultation Cardiovascular: regular rate and rhythm Results Result Diagram: 08/20/16 0621 08/20/16 0612 Results 24 hrs Laboratory Tests Test 08/19/16 17:13 08/20/16 06:12 08/20/16 06:21 08/20/16 07:44 Bedside Glucose 87 99 Prothrombin Time 14.0 Prothrombin Time Ratio 1.1 INR International Normalized Ratio 1.08 Sodium Level 141 Potassium Level 4.0 Chloride Level 107 Carbon Dioxide Level 24 Anion Gap 14 Blood Urea Nitrogen 22 H Creatinine 0.96 Glucose Level 93 Calcium Level 8.8 White Blood Count 10.6 Red Blood Count 4.76 Hemoglobin 12.9 L Hematocrit 40.3 L Mean Corpuscular Volume 84.7 Mean Corpuscular Hemoglobin 27.1 L Mean Corpuscular Hemoglobin Concent 32.0 Red Cell Distribution Width 14.5 Platelet Count 252 Mean Platelet Volume 11.0 H Neutrophils % 70.8 Lymphocytes % 17.0 Monocytes % 8.7 Eosinophils % 2.4 Basophils % 0.8 Nucleated Red Blood Cells % 0.0 Neutrophils # 7.5 Lymphocytes # 1.8 Monocytes # 0.9 Eosinophils # 0.3 Basophils # 0.1 Nucleated Red Blood Cells # 0.0 Medications Medications Current Medications Clonidine (Catapres) 0.1 mg Q6H PRN PO prn sbp > 160 or dbp >100 Last administered on 08/18/16 20:26; Admin Dose 0.1 MG; Start 08/17/16 at 11:00 Atorvastatin Calcium (Lipitor) 80 mg HS PO Last administered on 08/19/16 21:37 ; Admin Dose 80 MG; Start 08/18/16 at 21:00 Aspirin (Ecotrin) 325 mg DAILY PO Last administered on 08/20/16 08:21; Admin Dose 325 MG; Start 08/18/16 at 09:00 Metoprolol Succinate (Toprol Xl) 50 mg DAILY PO Last administered on 08/20/16 08:21; Admin Dose 50 MG; Start 08/18/16 at 09:00 Losartan Potassium (Cozaar) 100 mg DAILY PO Last administered on 08/20/16 08:20 ; Admin Dose 100 MG; Start 08/18/16 at 09:00 Nitroglycerin (Nitroglycerin 2% Oint) 1 inch Q12 TD Last administered on 21:37; Admin Dose 1 INCH; Start 08/18/16 at 04:00 Nitroglycerin (Nitroglycerin (Sl Tab) 0.4 Mg) 1 tab Q5M PRN SL ANGINA; Start at 15:30 Hydralazine HCl (Apresoline) 10 mg Q4 PRN IV SBP>170 Last administered on 11:57; Admin Dose 10 MG; Start 08/19/16 at 21:00 Nifedipine (Procardia Xl) 30 mg BID PO Last administered on 08/20/16 08:21; Admin Dose 30 MG; Start 08/19/16 at 21:00 Acetaminophen (Tylenol Tab) 650 mg Q4H PRN PO NON-CARDIAC PAIN LEVEL (1-3); Start 08/20/16 at 10:30 Morphine Sulfate (morphine) 2 mg Q2H PRN IV FOR NON CARDIAC PAIN (4-10); Start 08/20/16 at 10:30 Al Hydrox/Mg Hydrox/Simethicone (Mag-Al Plus) 30 ml Q4H PRN PO GASTROINTESTINAL UPSET; Start 08/20/16 at 10:30 Ondansetron HCl (Zofran Inj) 4 mg Q4H PRN IV NAUSEA AND/OR VOMITING; Start 08/20 at 10:30 TAVIA STYLES 9, 2017 15:24
[2016-08-20] MEDS: ATORVASTATIN 80 MG TAB PO SCH (21:09)
[2016-08-21] VITALS (8 sets, daily range): BP systolic 137–147; BP diastolic 76–89; PULSE 66–74; RESP 17–20
[2016-08-21] MEDS: LOSARTAN 50 MG TAB PO SCH (08:18)
[2016-08-21] MEDS: NITROGLYCERIN 2% 1 GM OINT PKT TD SCH (08:18)
[2016-08-21] MEDS: ASPIRIN (EC) 325 MG TAB PO SCH (08:18)
[2016-08-21] MEDS: METOPROLOL (XL) 50 MG TAB PO SCH (08:18)
[2016-08-21] MEDS: NIFEdipine (XL) 30 MG TAB PO SCH (08:18)
[2016-08-21 08:58] LABS: CALCIUM 8.6 mg/dl (8.4-10.2); CREATININE 1.14 mg/dl (0.61-1.24); POTASSIUM 4.1 mmol/L (3.5-5.1)
--- NOTE | 2016-08-21 10:38 | PN ---
Date/Time of Note Date/Time of Note DATE: 08/21/16 TIME: 10:36 Assessment/Plan VTE Prophylaxis VTE Prophylaxis Intervention: ambulation Lines/Catheters IV [facility] Type (from [facility] [place] Urinary Cath still in place: No Assessment/Plan Chief Complaint/Hosp Course 1. Uncontrolled malignant hypertension, better 2. The patient has non-ST myocardial infarction. 3. The patient has mild anemia 4. Obesity. Problems: Assessment/Plan 1. Discharge if ok with dr Yee Subjective 24 Hr Interval Summary Constitutional: improved, no complaints Respiratory: no complaints Cardiovascular: no complaints Gastrointestinal: no complaints Exam/Review of Systems Vital Signs Vitals Vital Signs Date Time Temp Pulse Resp B/P Pulse Ox O2 Delivery O2 Flow Rate FiO2 08/21/16 08:14 74 08/21/16 08:10 98.2 17 146/84 95 08/20/16 12:17 Room Air Intake and Output 08/20/16 08/20/16 08/21/16 15:00 23:00 07:00 Intake Total 1400 ml 1000 ml Output Total 1600 ml Balance -200 ml 1000 ml Exam Constitutional: alert, oriented Psych: no complaints Head: normocephalic Eyes: nl conjunctiva ENMT: nl external ears & nose Neck: supple Respiratory: clear to auscultation Cardiovascular: regular rate and rhythm Results Result Diagram: 08/20/16 0621 08/21/16 0752 Results 24 hrs Laboratory Tests Test 08/21/16 07:52 Sodium Level 140 Potassium Level 4.1 Chloride Level 105 Carbon Dioxide Level 29 Anion Gap 10 Blood Urea Nitrogen 21 H Creatinine 1.14 Glucose Level 94 Calcium Level 8.6 Medications Medications Current Medications Clonidine (Catapres) 0.1 mg Q6H PRN PO prn sbp > 160 or dbp >100 Last administered on 08/18/16 20:26; Admin Dose 0.1 MG; Start 08/17/16 at 11:00 Atorvastatin Calcium (Lipitor) 80 mg HS PO Last administered on 08/20/16 21:09 ; Admin Dose 80 MG; Start 08/18/16 at 21:00 Aspirin (Ecotrin) 325 mg DAILY PO Last administered on 08/21/16 08:18; Admin Dose 325 MG; Start 08/18/16 at 09:00 Metoprolol Succinate (Toprol Xl) 50 mg DAILY PO Last administered on 08/21/16 08:18; Admin Dose 50 MG; Start 08/18/16 at 09:00 Losartan Potassium (Cozaar) 100 mg DAILY PO Last administered on 08/21/16 08: 18; Admin Dose 100 MG; Start 08/18/16 at 09:00 Nitroglycerin (Nitroglycerin 2% Oint) 1 inch Q12 TD Last administered on 08:18; Admin Dose 1 INCH; Start 08/18/16 at 04:00 Nitroglycerin (Nitroglycerin (Sl Tab) 0.4 Mg) 1 tab Q5M PRN SL ANGINA; Start at 15:30 Hydralazine HCl (Apresoline) 10 mg Q4 PRN IV SBP>170 Last administered on 11:57; Admin Dose 10 MG; Start 08/19/16 at 21:00 Nifedipine (Procardia Xl) 30 mg BID PO Last administered on 08/21/16 08:18; Admin Dose 30 MG; Start 08/19/16 at 21:00 Acetaminophen (Tylenol Tab) 650 mg Q4H PRN PO NON-CARDIAC PAIN LEVEL (1-3); Start 08/20/16 at 10:30 Morphine Sulfate (morphine) 2 mg Q2H PRN IV FOR NON CARDIAC PAIN (4-10); Start 08/20/16 at 10:30 Al Hydrox/Mg Hydrox/Simethicone (Mag-Al Plus) 30 ml Q4H PRN PO GASTROINTESTINAL UPSET; Start 08/20/16 at 10:30 Ondansetron HCl (Zofran Inj) 4 mg Q4H PRN IV NAUSEA AND/OR VOMITING; Start 08/20 at 10:30 TAVIA STYLES Aug 21, 2016 10:38
--- NOTE | 2016-08-21 11:03 | PDOCDIS ---
Discharge Instructions CONDITION Patient Condition: Stable HOME CARE INSTRUCTIONS: Diet Instructions: Low Fat /CholesterolSpecial Diet: carbohydrates control ACTIVITY: Activity Restrictions: Slowly Increase Activity FOLLOW UP/APPOINTMENTS Appointments PCP 1 week SCHOOL/WORK RELEASE May return to School/Work with: No Restrictions TAVIA STYLES Aug 21, 2016 11:03
[2016-08-21] MEDS ORDERED: LOSA50TA2 PO (11:06)
[2016-08-21] MEDS ORDERED: HYDR-3671 PO (11:06)
[2016-08-21] MEDS ORDERED: CLON0.1T14 PO (11:06)
[2016-08-21] MEDS ORDERED: ASPI325T32 PO (11:06)
[2016-08-21] MEDS ORDERED: NIFE30TA2 PO (11:06)
[2016-08-21] MEDS ORDERED: NIT4 SL (11:06)
[2016-08-21] MEDS ORDERED: ATOR80TA75 PO (11:06)
[2016-08-21] MEDS ORDERED: METO50TA16 PO (11:06)
[2016-08-21] MEDS ORDERED: NIT1OI2 TD (11:31)
--- NOTE | 2016-08-21 12:12 | CONS ---
Date/Time of Note Date/Time of Note DATE: 08/21/16 TIME: 12:09 Assessment/Plan Assessment/Plan Chief Complaint/Hosp Course IMPRESSION: 1. Positive troponin concerning for non-ST elevation myocardial infarction.- Now s/p C 08/20 with mild to moderate non-obstructive cad 2. Chest pain on admission none currently. 3. Hypertensive emergency-improving 4. Anemia. 5. Dyslipidemia. Recc: -Tele -serial ecg's -Continue toprol/losartan/procardia XL BID -Continue statin -IF BP reamains stable then d/c planning Problems: Consultation Date/Type/Reason Admit Date/Time Aug 17, 2016 at 01:56 Initial Consult Date 08/18/2016 Type of Consultation: cardiology Reason for Consultation positive troponin Referring Provider: JENNIFER MACHADO MD Exam/Review of Systems Vital Signs Vitals Vital Signs Date Time Temp Pulse Resp B/P Pulse Ox O2 Delivery O2 Flow Rate FiO2 08/21/16 11:54 97.9 69 17 142/83 98 08/20/16 12:17 Room Air Intake and Output 08/20/16 08/20/16 08/21/16 15:00 23:00 07:00 Intake Total 1400 ml 1000 ml Output Total 1600 ml Balance -200 ml 1000 ml Exam Review of Systems: CONSTITUTIONAL: No fevers, chills. PULMONARY: No sob CARDIOVASCULAR: No chest pain/palpitations GASTROINTESTINAL: No nausea/vomiting. GENITOURINARY: No hematuria/dysuria. MUSCULOSKELETAL: No myagias/arthalgias. PSYCHIATRIC: The patient denies depression. NEUROLOGIC: No weakness Constitutional: alert, oriented Psych: no complaints ENMT: mucosa pink and moist Neck: jvd (8 cm water), supple Respiratory: clear to auscultation Cardiovascular: regular rate and rhythm Gastrointestinal: non-tender, soft Musculoskeletal: other (R wrist normal pulse no sig ecchymosis) Extremities: edema (none) Neurological: other (No focal deficits) Results Result Diagram: 08/20/16 0621 08/21/16 0752 Results 24 hrs Laboratory Tests Test 08/21/16 07:52 Sodium Level 140 Potassium Level 4.1 Chloride Level 105 Carbon Dioxide Level 29 Anion Gap 10 Blood Urea Nitrogen 21 H Creatinine 1.14 Glucose Level 94 Calcium Level 8.6 Medications Medications Current Medications Clonidine (Catapres) 0.1 mg Q6H PRN PO prn sbp > 160 or dbp >100 Last administered on 08/18/16 20:26; Admin Dose 0.1 MG; Start 08/17/16 at 11:00 Atorvastatin Calcium (Lipitor) 80 mg HS PO Last administered on 08/20/16 21:09 ; Admin Dose 80 MG; Start 08/18/16 at 21:00 Aspirin (Ecotrin) 325 mg DAILY PO Last administered on 08/21/16 08:18; Admin Dose 325 MG; Start 08/18/16 at 09:00 Metoprolol Succinate (Toprol Xl) 50 mg DAILY PO Last administered on 08/21/16 08:18; Admin Dose 50 MG; Start 08/18/16 at 09:00 Losartan Potassium (Cozaar) 100 mg DAILY PO Last administered on 08/21/16 08: 18; Admin Dose 100 MG; Start 08/18/16 at 09:00 Nitroglycerin (Nitroglycerin 2% Oint) 1 inch Q12 TD Last administered on 08:18; Admin Dose 1 INCH; Start 08/18/16 at 04:00 Nitroglycerin (Nitroglycerin (Sl Tab) 0.4 Mg) 1 tab Q5M PRN SL ANGINA; Start at 15:30 Nifedipine (Procardia Xl) 30 mg BID PO Last administered on 08/21/16 08:18; Admin Dose 30 MG; Start 08/19/16 at 21:00 Acetaminophen (Tylenol Tab) 650 mg Q4H PRN PO NON-CARDIAC PAIN LEVEL (1-3); Start 08/20/16 at 10:30 Morphine Sulfate (morphine) 2 mg Q2H PRN IV FOR NON CARDIAC PAIN (4-10); Start 08/20/16 at 10:30 Al Hydrox/Mg Hydrox/Simethicone (Mag-Al Plus) 30 ml Q4H PRN PO GASTROINTESTINAL UPSET; Start 08/20/16 at 10:30 Ondansetron HCl (Zofran Inj) 4 mg Q4H PRN IV NAUSEA AND/OR VOMITING; Start 08/20 at 10:30 Hydralazine HCl (Apresoline) 25 mg Q6H PRN PO SBP ABOVE 140; Start 08/21/16 at 11:00 TAYLOR MICHAELS Aug 21, 2016 12:12
== END 2016-08-21 14:57 | disposition home or self-care (01) | DRG 281 ==
LOC: E/R 21:15 → MS4 08-17 01:56
PROVIDERS: ADMIT Internal Medicine Nephrology; ATTEND Internal Medicine Nephrology
PROC: B211YZZ Fluoroscopy of Multiple Coronary Arteries using Other Contrast (ICD-10-PCS; 2016-08-20)
PROC: 4A023N7 Measurement of Cardiac Sampling and Pressure, Left Heart, Percutaneous Approach (ICD-10-PCS; principal; 2016-08-20 09:00)
DX: I21.4 Non-ST elevation (NSTEMI) myocardial infarction (principal); I16.1 Hypertensive emergency; Z68.41 Body mass index [BMI] 40.0-44.9, adult; E66.9 Obesity, unspecified; I10 Essential (primary) hypertension; D64.9 Anemia, unspecified; E78.5 Hyperlipidemia, unspecified; I25.10 Atherosclerotic heart disease of native coronary artery without angina pectoris
CPT/HCPCS: 71010; 80048; 80053; 80061; 82962; 83880; 84484; 85025; 85610; 85730; 93005; 93306; 93458; C1769; C1887; J0360; J1644; J2250; J3010; J7030; Q9967

== ENCOUNTER 2017-06-17 13:22 | Emergency (ER) | END 2017-06-17 19:55 | disposition home or self-care (01) ==

== ENCOUNTER 2018-11-03 17:10 | Emergency (ER) | payer OTHER ==
[~2018-11-03] VITALS: Ht 172.7 cm; Wt 118.2 kg
[~2018-11-03 17:10] MED LIST: ATOR-2 PO; CLON-379 PO; HYDR-3671 PO; IBUP-1542 PO; LOSA1TAB22 PO; NIFE30TA23 PO
[2018-11-03 17:34] VITALS: Ht 172.7 cm; Wt 118.2 kg
[2018-11-03] MEDS ORDERED: SOD CHLORIDE 0.9% 500 ML IV STA (18:05)
[2018-11-03] MEDS ORDERED: ENALAPRILAT 1.25 MG INJ IV ONE (18:30)
[2018-11-03] MEDS ORDERED: KETOROLAC 15 MG INJ IV STA (18:55)
[2018-11-03 19:33] VITALS: BP 170/89; PULSE 79; RESP 18
== END 2018-11-03 19:38 | disposition home or self-care (01) ==
LOC: E/R 17:10
DX: S96.901A Unspecified injury of unspecified muscle and tendon at ankle and foot level, right foot, initial encounter (principal); I25.10 Atherosclerotic heart disease of native coronary artery without angina pectoris; I16.9 Hypertensive crisis, unspecified; R25.2 Cramp and spasm; X58.XXXA Exposure to other specified factors, initial encounter; Y92.9 Unspecified place or not applicable
CPT/HCPCS: 36415; 73610; 80053; 83690; 85025; 96374; 96375; J1885; J7040; Z7502; Z7610